=== PATIENT | male | born 1930 | race Caucasian/White ===

== ENCOUNTER → 2017-10-17 | Outpatient (CLI) | payer MEDICARE ==
[~2017-10-17] MED LIST: ASPI-515 PO; ATEN25TA PO; GLUC1TAB35 PO; LEVO75TA59 PO; PSYL0.5215 PO
== END | disposition home or self-care (01) ==
LOC: CFH 13:39
PROVIDERS: ATTEND Internal Medicine Cardiovascular Disease
DX: I07.1 Rheumatic tricuspid insufficiency (principal); I10 Essential (primary) hypertension; I25.10 Atherosclerotic heart disease of native coronary artery without angina pectoris; E78.00 Pure hypercholesterolemia, unspecified; E03.9 Hypothyroidism, unspecified
CPT/HCPCS: 93306

== ENCOUNTER → 2017-12-11 | Outpatient (CLI) | payer MEDICARE ==
[~2017-12-11] MED LIST changes: +REGADENOSON 0.4 MG/5 ML SYRINGE ONE
== END | disposition home or self-care (01) ==
LOC: CFH 12:25
PROVIDERS: ATTEND Internal Medicine Cardiovascular Disease
DX: I10 Essential (primary) hypertension (principal); I25.10 Atherosclerotic heart disease of native coronary artery without angina pectoris
CPT/HCPCS: 78452; 93017; A9502; J2785

== ENCOUNTER 2018-01-02 10:17 | Day surgery (SDC) | payer MEDICARE ==
[2018-01-01 08:56] VITALS: BP 144/76
[2018-01-01 09:18] LABS: BASOPHILS # (AUTO) 0.04 x10^3/uL (0-0.1); BASOPHILS % (AUTO) 0 % (0-1); EOSINOPHILS # (AUTO) 0.11 x10^3/uL (0-0.4); EOSINOPHILS % (AUTO) 1 % (1-7); LYMPHOCYTES # (AUTO) 1.36 x10^3/uL (1-3.4); LYMPHOCYTES % (AUTO) 15 % (22-44); MD NO; MEAN CORPUSCULAR HEMOGLOBIN 31.5 pg (27.5-34.5); MEAN CORPUSCULAR HGB CONC 33.6 g/dL (33.2-36.2); MEAN CORPUSCULAR VOLUME 93.9 fL (81-97); MONOCYTES % (AUTO) 6 % (2-9); NEUTROPHILS % (AUTO) 78 % (42-75); PLATELET COUNT 251 x10^3/uL (130-400); RED BLOOD COUNT 5.14 x10^6/uL (4.38-5.82); RED CELL DISTRIBUTION WIDTH 13.7 % (9.4-14.8)
[2018-01-01 09:28] LABS: ANION GAP 6 mmol/L (5-15); CALCIUM 7.6 mg/dL (8.5-10.1); CHLORIDE 108 mmol/L (98-107); CREATININE 0.99 mg/dL (0.7-1.3)
[~2018-01-02] VITALS: Ht 175.3 cm; Wt 77.3 kg
[~2018-01-02 10:17] MED LIST changes: +AMLO5TAB7 PO; +CARI350T14 PO; +MULT-224 PO; +PRAV20TA2 PO; -REGADENOSON 0.4 MG/5 ML SYRINGE ONE; +TAMS-11 PO; +ZOLP5TAB6 PO
[2018-01-02] MEDS ORDERED: SODIUM CHLORIDE 0.9% 1,000 ML IV ONE (11:00)
[2018-01-02] MEDS ORDERED: HEPARIN 1,000 UNITS/ML, 10ML ONE (11:59)
[2018-01-02] MEDS ORDERED: LIDOCAINE-MPF 2%, 2ML ONE (11:59)
[2018-01-02] MEDS ORDERED: FENTANYL PF 100 MCG/2ML ONE (11:59)
[2018-01-02] MEDS ORDERED: MIDAZOLAM 1 MG/ML, 2ML ONE (11:59)
[2018-01-02] MEDS ORDERED: VERAPAMIL 2.5 MG/ML, 2ML ONE (12:00)
[2018-01-02] MEDS ORDERED: BIVALIRUDIN 250 MG ONE (12:46)
[2018-01-02] MEDS ORDERED: TICAGRELOR 90 MG TABLET ONE (12:46)
[2018-01-02] MEDS ORDERED: SODIUM CHLORIDE 0.9% 1,000 ML IV SCH (12:57)
== END 2018-01-02 15:52 | disposition home or self-care (01) ==
LOC: CACL 10:17
PROVIDERS: ATTEND Internal Medicine Cardiovascular Disease
DX: I25.10 Atherosclerotic heart disease of native coronary artery without angina pectoris (principal); I10 Essential (primary) hypertension; E78.5 Hyperlipidemia, unspecified; E78.00 Pure hypercholesterolemia, unspecified; E03.9 Hypothyroidism, unspecified; Z79.82 Long term (current) use of aspirin; Z79.899 Other long term (current) drug therapy
CPT/HCPCS: 36415; 80048; 85025; 93458; 93571; 99156; 99157; C1769; C1887; C1894; J1644; J2250; J3010; J3490; J7030; Q9967; J0583

== ENCOUNTER 2018-10-08 14:27 | Emergency (ER) | payer MEDICARE ==
[~2018-10-08] VITALS: Ht 175.3 cm; Wt 79.9 kg
[~2018-10-08 14:27] MED LIST changes: +AMLO-150 PO; -AMLO5TAB7 PO; -MULT-224 PO; +MULT-642 PO
[2018-10-08 14:29] VITALS: BP 139/74
--- NOTE | 2018-10-08 14:45 | NUR ---
TASK RN: PT SITTING UP IN EXAM CHAIR, AWAKE/ALERT. NAD NOTED. PT REPORTS SUDDEN ONSET L NARE EPISTAXIS X TODAY. BLEEDING RESOLVED AT THIS TIME. PT DENIES SANDERS/TRAUMA. PT NOT HYPERTENSIVE IN TRIAGE. TAKES DAILY ASA.
--- NOTE | 2018-10-08 15:20 | NUR ---
Report from jin Engle RN. Assumed care of patient at this time. Patient/Caregiver given discharge instructions and they have confirmed that they understand the instructions. Patient ambulatory with steady gait.
== END 2018-10-08 15:22 | disposition home or self-care (01) ==
LOC: ED 15:20
DX: R04.0 Epistaxis (principal); I10 Essential (primary) hypertension
CPT/HCPCS: 99281

== ENCOUNTER → 2019-02-22 | Outpatient (CLI) | payer MEDICARE | END | disposition home or self-care (01) | LOC: RAD 11:21 | PROVIDERS: ATTEND Family Medicine | DX: S33.130A Subluxation of L3/L4 lumbar vertebra, initial encounter (principal); S33.140A Subluxation of L4/L5 lumbar vertebra, initial encounter; M41.86 Other forms of scoliosis, lumbar region; M47.817 Spondylosis without myelopathy or radiculopathy, lumbosacral region; M48.061 Spinal stenosis, lumbar region without neurogenic claudication; M25.78 Osteophyte, vertebrae; M25.752 Osteophyte, left hip; X58.XXXA Exposure to other specified factors, initial encounter; Y93.89 Activity, other specified; Y92.89 Other specified places as the place of occurrence of the external cause; Y99.8 Other external cause status | CPT/HCPCS: 72110 ==

== ENCOUNTER → 2019-11-03 | Outpatient (CLI) | payer MEDICARE | END | disposition home or self-care (01) | LOC: CFH 14:53 | PROVIDERS: ATTEND Internal Medicine Cardiovascular Disease | DX: I34.0 Nonrheumatic mitral (valve) insufficiency (principal); I25.10 Atherosclerotic heart disease of native coronary artery without angina pectoris; I10 Essential (primary) hypertension | CPT/HCPCS: 93306 ==

== ENCOUNTER 2020-08-08 10:08 | Day surgery (SDC) | payer MEDICARE ==
[~2020-08-08] VITALS: Ht 175.3 cm; Wt 74.4 kg
[~2020-08-08 10:08] MED LIST changes: -ASPI-515 PO; +ASPI-963 PO; +CARI-389 PO; -CARI350T14 PO; +FAMO20TA7 PO
[2020-08-08] MEDS ORDERED: HYDR12.517 PO (10:51)
[2020-08-08] MEDS ORDERED: ONE A DAY FOR MEN PO (10:51)
[2020-08-08] MEDS ORDERED: GABA-827 PO (10:51)
[2020-08-08] MEDS ORDERED: CHLORHEXIDINE 15 ML UDC ONE (10:55)
[2020-08-08] MEDS ORDERED: LACTATED RINGERS 1,000 ML IV SCH (11:00)
[2020-08-08] MEDS ORDERED: CHLORHEXIDINE 15 ML UDC PO ONE (11:00)
[2020-08-08 11:07] VITALS: BP 127/72
[2020-08-08] MEDS ORDERED: PROPOFOL 10 MG/ML, 20ML ONE ×2 (12:05)
[2020-08-08] MEDS ORDERED: GLYCOPYRROLATE 0.2MG/1ML, 5ML ONE (12:05)
[2020-08-08] MEDS ORDERED: OXYcodone 5 MG/5 ML ORAL.SOL UDC PO PRN (12:30)
[2020-08-08] MEDS ORDERED: MEPERIDINE/PF 25MG/0.5ML IVPush PRN (12:30)
[2020-08-08] MEDS ORDERED: hydrALAzine 20 MG/ML, 1ML IV PRN (12:30)
[2020-08-08] MEDS ORDERED: LABETALOL 5MG/ML, 20ML IV PRN (12:30)
[2020-08-08] MEDS ORDERED: PROMETHAZINE 12.5 MG SUPP PR PRN (12:30)
[2020-08-08] MEDS ORDERED: EPHEDRINE 50 MG/ML, 1ML IVPush PRN (12:30)
[2020-08-08] MEDS ORDERED: ALBUTEROL SULFATE 2.5 MG/3 ML NPPB PRN (12:30)
[2020-08-08] MEDS ORDERED: DIAZEPAM 5 MG/ML, 2ML IVPush PRN (12:30)
[2020-08-08] MEDS ORDERED: PROMETHAZINE 25 MG/ML, 1ML IVPush PRN (12:30)
[2020-08-08] MEDS ORDERED: MIDAZOLAM 1 MG/ML, 2ML IV PRN (12:30)
[2020-08-08] MEDS ORDERED: HYDROmorphone 1 MG/ML, 1ML INJ IVPush PRN (12:30)
[2020-08-08] MEDS ORDERED: ONDANSETRON 2MG/ML, 2ML IVPush PRN (12:30)
[2020-08-08] MEDS ORDERED: DIPHENHYDRAMINE 50 MG/ML, 1ML IVPush PRN ×2 (12:30)
[2020-08-08] MEDS ORDERED: SUCCINYLCHOLINE 20 MG/ML, 10ML ONE (12:58)
[2020-08-08] MEDS ORDERED: KETOROLAC 30 MG/1 ML ONE (12:58)
[2020-08-08] MEDS ORDERED: DEXAMETHASONE 4 MG/ML, 1ML ONE (12:58)
[2020-08-08] MEDS ORDERED: ONDANSETRON 2MG/ML, 2ML ONE (12:58)
== END 2020-08-08 13:40 | disposition home or self-care (01) ==
LOC: OUT 10:08
PROVIDERS: ATTEND Internal Medicine
DX: K86.1 Other chronic pancreatitis (principal); K86.2 Cyst of pancreas; K86.89 Other specified diseases of pancreas; I10 Essential (primary) hypertension; E78.5 Hyperlipidemia, unspecified; E03.9 Hypothyroidism, unspecified; Z20.822 Contact with and (suspected) exposure to COVID-19; Z79.890 Hormone replacement therapy; Z79.899 Other long term (current) drug therapy; Z90.49 Acquired absence of other specified parts of digestive tract; Z98.890 Other specified postprocedural states; Z80.0 Family history of malignant neoplasm of digestive organs; Z82.49 Family history of ischemic heart disease and other diseases of the circulatory system
CPT/HCPCS: 43242; 82150; 82378; 87635; J0330; J1100; J1885; J2405; J2704; J7120